=== PATIENT | male | born 1970 | race Caucasian/White ===

== ENCOUNTER 2017-04-12 06:46 | Emergency (ER) | payer BC, OTHER ==
[2017-04-12 06:57] VITALS: BP 116/73; PULSE 56; TEMP 97.6; BMI 30.2
[2017-04-12] MEDS ORDERED: TETRACAINE 0.5% OPHTH SOLN 2 ML BOTTLE ONE (07:22)
[2017-04-12] MEDS ORDERED: FLUORESCEIN NA 1 EA STRIP ONE (07:22)
--- NOTE | 2017-04-12 07:49 | PDOC ---
History of Present Illness - General Chief Complaint: Pain, Acute Stated Complaint: FOREIGN BODY RIGHT EYE - History of Present Illness Initial Comments: 04/12/17 07:43 47-year-old male denies significant past medical history presents to the emergency Department with foreign body sensation in the right eye since noon yesterday. 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 He did not have any eye protection on at the time. Patient reports since then he's had an increasing sensation of foreign body. Denies any other injuries. Denies blurry vision. Denies discharge from his eye. He was otherwise in his usual state of good health, denies fevers , chills, chest pain, shortness of breath, abdominal pain, focal weakness or numbness. No treatments tried. Pt does not wear contacts. Past History - Past Medical History Allergies/Adverse Reactions: Allergies Allergy/AdvReac Type Severity Reaction Status Date / Time No Known Allergies Allergy Verified 04/12/17 06:51 Home Medications: Ambulatory Orders NK [No Known Home Medication] 04/12/17 COPD: No - Immunization History Immunization Up to Date: Yes - Suicide/Smoking/Psychosocial Hx Smoking History: Never smoked Have you smoked in the past 12 months: No Number of Cigarettes Smoked Daily: 0 Cigars Per Day: 0 Information on smoking cessation initiated: No Hx Alcohol Use: No Drug/Substance Use Hx: No Substance Use Type: None Review of Systems - Review of Systems Comments:: 04/12/17 07:50 GENERAL/CONSTITUTIONAL: No fever or chills. No weakness. HEAD, EYES, EARS, NOSE AND THROAT: +foreign body sensation. No change in vision. No ear pain or discharge. No sore throat. GASTROINTESTINAL: No nausea, vomiting, diarrhea or constipation. GENITOURINARY: No dysuria, frequency, or change in urination. CARDIOVASCULAR: No chest pain or shortness of breath. RESPIRATORY: No cough, wheezing, or hemoptysis. MUSCULOSKELETAL: No joint or muscle swelling or pain. No neck or back pain. SKIN: No rash NEUROLOGIC: No headache, vertigo, loss of consciousness, or change in strength/ sensation. ENDOCRINE: No increased thirst. No abnormal weight change. HEMATOLOGIC/LYMPHATIC: No anemia, easy bleeding, or history of blood clots. ALLERGIC/IMMUNOLOGIC: No hives or skin allergy. *Physical Exam - Vital Signs Last Vital Signs Temp Pulse Resp BP Pulse Ox 97.6 F 56 L 16 116/73 100 04/12/17 06:52 04/12/17 06:52 04/12/17 06:52 04/12/17 06:52 04/12/17 06:52 - Physical Exam Comments: 04/12/17 07:51 GENERAL: Awake, alert, and fully oriented, in no acute distress HEAD: No signs of trauma EYES: PERRLA, EOMI, sclera anicteric, visual acuity 20/20 OU. Conjunctiva slightly injected OD. Upon fluorescein application, +4x3mm ovoid superficial abrasion at 12 o'clock. Upon eyelid eversion, no foreign body visualized. ENT: Auricles normal inspection, hearing grossly normal, nares patent, oropharynx clear without exudates. Moist mucosa NECK: Normal ROM, supple, no lymphadenopathy, JVD, or masses LUNGS: Breath sounds equal, clear to auscultation bilaterally. No wheezes, and no crackles HEART: Regular rate and rhythm, normal S1 and S2, no murmurs, rubs or gallops ABDOMEN: Soft, nontender, normoactive bowel sounds. No guarding, no rebound. No masses EXTREMITIES: Normal range of motion, no edema. No clubbing or cyanosis. No cords, erythema, or tenderness NEUROLOGICAL: Normal speech, cranial nerves intact, negative pronator drift, 5/ 5 strength in all 4 extremities, normal gait SKIN: Warm, Dry, normal turgor, no rashes or lesions noted. Medical Decision Making - Medical Decision Making 04/12/17 07:53 47-year-old male presents with foreign body sensation after concrete falling into r eye. Exam consistent with corneal abrasion at 12:00 OD. Will prescribe Polytrim drops every 4 hours and artificial tears every 4 hours. Follow-up has been arranged with Dr. Guerra from ophthalmology at 9:30 AM today. Plan discussed with patient who is in agreement. I discussed the physical exam findings, ancillary test results and final diagnoses with the patient. I answered all of the patient's questions. The patient was satisfied with the care received and felt comfortable with the discharge plan and treatment plan. The patient will call their primary care physician within 24 hours to arrange follow-up and will return to the Emergency Department with any new, persistent or worsening symptoms. *DC/Admit/Observation/Transfer Diagnosis at time of Disposition: Corneal abrasion - Discharge Dispostion Disposition: HOME Condition at time of disposition: Stable - Referrals Referrals: Domingo Lobato MD [Staff Physician] - - Patient Instructions Printed Discharge Instructions: DI for Corneal Abrasion Additional Instructions: Follow-up with Dr. Lacy from ophthalmology at 9:30 AM today is discussed. The addressed is included in this discharge packet. Return to the emergency department if you have any new, worsening or concerning symptoms. - Post Discharge Activity - Attestations Physician Attestion: 04/12/17 07:56 I, Dr. Lucio Berry MD, attest that this document has been prepared under my direction and personally reviewed by me in its entirety. I further attest, that it accurately reflects all work, treatment, procedures and medical decision -making performed by me.
[2017-04-12] MEDS ORDERED: DIPHTH,PERTUSS(ACELL),TET 0.5 ML DISP.SYRIN IM ONE (07:57)
== END 2017-04-12 08:32 | disposition home or self-care (01) ==
LOC: FER 06:46
PROC: 3E0234Z Introduction of Serum, Toxoid and Vaccine into Muscle, Percutaneous Approach (ICD-10-PCS; principal; 2017-04-12)
DX: S05.01XA Injury of conjunctiva and corneal abrasion without foreign body, right eye, initial encounter (principal); X58.XXXA Exposure to other specified factors, initial encounter; Y93.89 Activity, other specified; Y92.9 Unspecified place or not applicable; Y99.0 Civilian activity done for income or pay
CPT/HCPCS: 90715; 99281-25

== ENCOUNTER 2017-05-06 12:27 | Emergency (ER) | payer BC, OTHER ==
[2017-05-06 12:41] VITALS: BP 108/76; PULSE 92; TEMP 97.9; BMI 30.2
[2017-05-06] MEDS ORDERED: IBUPROFEN 400 MG TABLET (FP) PO ONE ×2 (13:23→13:26)
--- NOTE | 2017-05-06 13:48 | PDOC ---
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 He denies fall onto right arm/shoulder, numbness/tingling in right arm. Vital signs on arrival are within normal limits. REVIEW OF SYSTEMS: GENERAL/CONSTITUTIONAL: No fever/chills. No weakness. No weight change. MUSCULOSKELETAL: +right shoulder pain. No neck or back pain. SKIN: No rash or easy bruising. NEUROLOGIC: No headache, vertigo, loss of consciousness, or loss of sensation. PHYSICAL EXAM: VITAL_SIGNS: within normal limits GENERAL_APPEARANCE: alert, cooperative, no obvious discomfort. MENTAL_STATUS: speech clear, oriented X 3, responds appropriately to questions. NEURO: motor intact and sensory intact in injured extremity. EXTREMITIES: good pulse in injured extremity. No pain with palpation of right AC joint. Some pain with palpation of posterior right shoulder muscles. pain with abduction of right arm > 90 degrees. SKIN: warm, dry, good color. Past History - Past Medical History Allergies/Adverse Reactions: Allergies Allergy/AdvReac Type Severity Reaction Status Date / Time No Known Allergies Allergy Verified 05/06/17 12:41 Home Medications: Ambulatory Orders NK [No Known Home Medication] 05/06/17 COPD: No - Immunization History Immunization Up to Date: Yes - Suicide/Smoking/Psychosocial Hx Smoking History: Never smoked Have you smoked in the past 12 months: No Number of Cigarettes Smoked Daily: 0 Cigars Per Day: 0 Hx Alcohol Use: No Drug/Substance Use Hx: No Substance Use Type: None *Physical Exam - Vital Signs Last Vital Signs Temp Pulse Resp BP Pulse Ox 97.9 F 92 H 18 108/76 05/06/17 12:39 05/06/17 12:39 05/06/17 12:39 05/06/17 12:39 ED Treatment Course - Medications Given in the ED: ED Medications Discontinued Medications Generic Name Dose Route Start Last Admin Trade Name Freq PRN Reason Stop Dose Admin Ibuprofen 800 mg 05/06/17 13:23 05/06/17 13:31 Motrin - PO 05/06/17 13:24 800 mg ONCE ONE Administration Medical Decision Making - Medical Decision Making A/P: 47 y/o male with right shoulder strain today. Plan is as follows: 1. PO motrin Will discharge to home with supportive care instructions, including RICE instructions. Suggested he f/u with Ortho in 1 week if no improvement. The patient verbalizes understanding of all instructions, has no further questions and is awaiting discharge. *DC/Admit/Observation/Transfer Diagnosis at time of Disposition: Right shoulder strain Qualifiers: Encounter type: initial encounter Qualified Code(s): S46.911A - Strain of unspecified muscle, fascia and tendon at shoulder and upper arm level, right arm , initial encounter - Discharge Dispostion Disposition: HOME Condition at time of disposition: Good - Referrals Referrals: David Feliciano MD [Staff Physician] - - Patient Instructions Printed Discharge Instructions: DI for Shoulder Sprain, How To Perform RICE ( Rest, Ice, Compress, Elevate) Additional Instructions: Discharge Instructions: -You have a shoulder strain. -Take 600mg of Motrin every 6 hours for pain with food -Follow RICE instructions -Follow up with Dr. Feliciano within 1 week if no improvement -Return to the ER with any worsening or concerning symptoms - Post Discharge Activity
== END 2017-05-06 13:57 | disposition home or self-care (01) ==
LOC: JER 12:27 → JERFT 12:27 → JER 13:57
DX: S46.811A Strain of other muscles, fascia and tendons at shoulder and upper arm level, right arm, initial encounter (principal); X50.0XXA Overexertion from strenuous movement or load, initial encounter; Y93.89 Activity, other specified; Y92.89 Other specified places as the place of occurrence of the external cause; Y99.0 Civilian activity done for income or pay
CPT/HCPCS: 99282-25

== ENCOUNTER 2023-10-31 10:43 | Emergency (ER) | payer BC, OTHER ==
[2023-10-31 15:20] VITALS: BP 124/79; PULSE 77; RESP 20; TEMP 98.3; BMI 29.3
== END 2023-10-31 12:03 | disposition home or self-care (01) ==
LOC: FER 10:43
DX: S29.012A Strain of muscle and tendon of back wall of thorax, initial encounter (principal); X58.XXXA Exposure to other specified factors, initial encounter
CPT/HCPCS: 99283-25